=== PATIENT | male | born 1990 | race African-American/Black ===

== ENCOUNTER 2022-05-21 13:42 | Emergency (ER) | payer MEDICAID ==
[~2022-05-21] VITALS: Ht 177.8 cm; Wt 71.0 kg
[2022-05-21 14:28] VITALS: BP 142/95
[2022-05-21] MEDS ORDERED: KETOROLAC 30MG/ML VIAL IM ONE (17:15)
[2022-05-21] MEDS ORDERED: LIDOCAINE HCL/PF 1% 10 MG/ML 5ML VIAL INFIL ONE (17:15)
[2022-05-21] MEDS ORDERED: CEFTRIAXONE SODIUM 1 G/VIAL IM ONE (17:15)
[2022-05-21] MEDS ORDERED: SULF1TAB48 PO (17:57)
[2022-05-21] MEDS ORDERED: IBUP-2029 PO (17:57)
[2022-05-21] MEDS ORDERED: AMOX1TAB16 PO (17:57)
[2022-05-21] MEDS ORDERED: BACITRACIN ZINC OINT UDPKT TOP ONE (18:00)
== END 2022-05-21 18:48 | disposition home or self-care (01) ==
LOC: ER 13:42
DX: L02.01 Cutaneous abscess of face (principal)
CPT/HCPCS: 96372; 99284; J0696; J1885; J3490

== ENCOUNTER 2022-06-01 03:24 | Emergency (ER) | payer MEDICAID ==
[~2022-06-01] VITALS: Ht 175.3 cm; Wt 71.0 kg
[~2022-06-01 03:24] MED LIST: AMOX1TAB16 PO; IBUP-2029 PO; SULF1TAB48 PO
[2022-06-01 03:36] VITALS: BP 160/95
== END 2022-06-01 07:55 | disposition home or self-care (01) ==
LOC: ER 03:24
DX: Z48.00 Encounter for change or removal of nonsurgical wound dressing (principal); L02.01 Cutaneous abscess of face
CPT/HCPCS: 99281

== ENCOUNTER 2022-06-13 07:02 | Emergency (ER) | payer MEDICAID ==
[~2022-06-13] VITALS: Ht 175.3 cm; Wt 66.8 kg
[2022-06-13] MEDS ORDERED: IBUPROFEN 600MG TABLET PO ONE (09:45)
[2022-06-13 10:35] VITALS: BP 147/94
[2022-06-13] MEDS ORDERED: MELO-105 MT (11:25)
== END 2022-06-13 12:10 | disposition home or self-care (01) ==
LOC: ER 07:02
DX: J02.9 Acute pharyngitis, unspecified (principal)
CPT/HCPCS: 87070; 87430; 99283